=== PATIENT | male | born 1965 | race Caucasian/White ===

== ENCOUNTER 2017-04-25 07:24 | Emergency (ER) | payer OTHER ==
[~2017-04-25] VITALS: Ht 180.3 cm; Wt 77.1 kg
[~2017-04-25 07:24] MED LIST: ASPIR LOW81 MG PO; BACTROBAN OINT22 GM PO; BP PILL; CHOLESTEROL PILL; CLARITIN10 MG PO; EPI EZ PEN1 MG/ML IM; KEFLEX500 MG PO; MEDROL DOSEPAK4 MG PO; METFORMIN500 MG PO; NEURONTIN800 MG PO; POTASSIUM; ULTRAM50 MG PO
[2017-04-25] MEDS ORDERED: METFORMIN1000 MG PO (07:32)
[2017-04-25] MEDS ORDERED: ATENOLOL25 MG PO (07:32)
[2017-04-25] MEDS ORDERED: SIMVASTATIN40 MG PO (07:32)
[2017-04-25] MEDS ORDERED: LISINOPRIL2.5 MG PO (07:32)
[2017-04-25 07:33] VITALS: BP 149/99
== END 2017-04-25 09:29 | disposition home or self-care (01) ==
LOC: ED 07:24
DX: S93.401A Sprain of unspecified ligament of right ankle, initial encounter (principal); F17.200 Nicotine dependence, unspecified, uncomplicated; Z91.030 Bee allergy status; Z79.82 Long term (current) use of aspirin; Z79.899 Other long term (current) drug therapy; W10.9XXA Fall (on) (from) unspecified stairs and steps, initial encounter; Y93.89 Activity, other specified; Y92.89 Other specified places as the place of occurrence of the external cause; Y99.8 Other external cause status

== ENCOUNTER 2019-01-26 13:10 | Emergency (ER) | payer OTHER ==
[~2019-01-26] VITALS: Ht 180.3 cm; Wt 89.8 kg
[~2019-01-26 13:10] MED LIST changes: +ATENOLOL25 MG PO; +LISINOPRIL2.5 MG PO; +METFORMIN1000 MG PO; +SIMVASTATIN40 MG PO
[2019-01-26 13:11] VITALS: BP 153/92
[2019-01-26] MEDS ORDERED: CLARITIN10 MG PO (13:40)
== END 2019-01-26 13:43 | disposition home or self-care (01) ==
LOC: ED 13:10
DX: J30.9 Allergic rhinitis, unspecified (principal); F17.200 Nicotine dependence, unspecified, uncomplicated; Z91.030 Bee allergy status; Z79.899 Other long term (current) drug therapy; Z79.82 Long term (current) use of aspirin

== ENCOUNTER → 2020-11-08 | Outpatient (CLI) | payer OTHER | END | disposition home or self-care (01) | LOC: COVID19 14:00 | PROVIDERS: ATTEND Internal Medicine | DX: Z20.822 Contact with and (suspected) exposure to COVID-19 (principal) ==

== ENCOUNTER 2021-04-16 09:19 | Emergency (ER) | payer OTHER ==
[~2021-04-16] VITALS: Ht 180.3 cm; Wt 86.2 kg
[2021-04-16 09:23] VITALS: BP 159/110
[2021-04-16] MEDS ORDERED: PREDNISONE50 MG PO (09:48)
== END 2021-04-16 10:23 | disposition home or self-care (01) ==
LOC: ED 09:19
DX: L25.9 Unspecified contact dermatitis, unspecified cause (principal); Z91.030 Bee allergy status; Z79.899 Other long term (current) drug therapy; Z79.82 Long term (current) use of aspirin

== ENCOUNTER 2021-11-04 20:22 | Emergency (ER) | payer OTHER ==
[~2021-11-04] VITALS: Ht 180.3 cm; Wt 81.6 kg
[~2021-11-04 20:22] MED LIST changes: +PREDNISONE50 MG PO
[2021-11-04 20:31] VITALS: BP 108/56
== END 2021-11-04 21:27 | disposition home or self-care (01) ==
LOC: ED 20:22
DX: S01.112A Laceration without foreign body of left eyelid and periocular area, initial encounter (principal); Z91.030 Bee allergy status; Z79.899 Other long term (current) drug therapy; W22.8XXA Striking against or struck by other objects, initial encounter; Y93.89 Activity, other specified; Y92.89 Other specified places as the place of occurrence of the external cause; Y99.8 Other external cause status

== ENCOUNTER 2021-11-14 05:51 | Emergency (ER) | payer OTHER ==
[~2021-11-14] VITALS: Ht 185.4 cm; Wt 90.7 kg
[2021-11-14 06:21] VITALS: BP 132/74
== END 2021-11-14 06:32 | disposition home or self-care (01) ==
LOC: ED 05:51
DX: S01.112D Laceration without foreign body of left eyelid and periocular area, subsequent encounter (principal); Z91.030 Bee allergy status; Z79.899 Other long term (current) drug therapy; X58.XXXD Exposure to other specified factors, subsequent encounter

== ENCOUNTER 2021-12-18 08:58 | Observation (INO) | payer OTHER ==
[2021-12-18] VITALS (8 sets, daily range): BP systolic 118–220; BP diastolic 56–120
[~2021-12-18] VITALS: Ht 180.3 cm; Wt 83.9 kg
[2021-12-18 10:00] LABS: BASO # 0.1 10*3/uL (0.0-0.1); BASO % 1.1 % (0.0-1.0); EOS # 0.1 10*3/uL (0.0-0.4); HEMATOCRIT 42.7 % (42.0-52.0); LYMPH # 2.2 10*3/uL (1.3-4.4); LYMPH % 36.7 % (27.0-41.0); MEAN CELL VOLUME 95.5 fl (80.0-94.0); MEAN CORPUSCULAR HGB 34.7 pg (27.0-31.0); MEAN CORPUSCULAR HGB CONC 36.3 g/dl (33.0-37.0); MEAN PLATELET VOLUME 11.4 fl (9.6-12.3); MONO # 0.7 10*3/uL (0.1-1.0); MONO % 10.6 % (3.0-9.0); NEUT % 48.8 % (47.0-73.0); PLATELET COUNT AUTOMATED 174 10*3/uL (130-400); RED BLOOD COUNT 4.47 10*6/uL (4.50-5.90); RED CELL DISTRI WIDTH 12.4 % (0-14.5); WHITE BLOOD COUNT 6.1 10*3/uL (4.8-10.8)
[2021-12-18 10:03] LABS: BILIRUBIN Negative (Negative); BLOOD Negative (Negative); CLARITY Clear (Clear); COLOR Yellow (Yellow); GLUCOSE Negative (Negative); KETONE Negative (Negative); LEUKO ESTERASE Trace (Negative); NITRITE Negative (Negative); PH 5.5 (4.5-8.0); SPECIFIC GRAVITY 1.015 (1.001-1.030)
[2021-12-18 10:13] LABS: BACTERIA TRACE; EPITHELIAL CELLS 0-2
[2021-12-18 10:19] LABS: URINE AMPHETAMINES < 1000 (1000ng/ml); URINE BARBITURATES < 200 (200ng/ml); URINE BENZODIAZEPINES < 200 (200ng/ml); URINE CANNABINOIDS (THC) < 50 (50ng/ml); URINE COCAINE < 300 (300ng/ml); URINE METHADONE < 300 (300ng/ml); URINE OPIATES < 300 (300ng/ml)
[2021-12-18 10:24] LABS: URINE PHENCYCLIDINE < 25 (25ng/ml)
[2021-12-18 10:40] LABS: ACT PARTIAL THROMBO TIME 24.5 SECONDS (20.0-32.1)
[2021-12-18 10:43] LABS: CHOLESTEROL 188 mg/dL (<200)
[2021-12-18 10:45] LABS: CHLORIDE 100 mmol/L (98-107); POTASSIUM 4.3 mmol/L (3.5-5.1); SODIUM 134 mmol/L (136-145)
[2021-12-18 10:48] LABS: TRIGLYCERIDES 2312 mg/dl (<150)
[2021-12-18 10:54] LABS: ALKALINE PHOSPHATASE 77 U/L (45-117); BUN 15 mg/dl (7-24); SGOT/AST 134 IU/L (3-35); TOTAL PROTEIN 7.5 gm/dL (6.4-8.2)
[2021-12-18 11:15] LABS: SGPT/ALT 81 U/L (12-78)
[2021-12-18] MEDS ORDERED: LIPITOR40 MG PO (11:44)
[2021-12-18] MEDS ORDERED: LISINOPRIL20 MG PO (11:44)
[2021-12-18] MEDS ORDERED: METFORMIN HYD1000 MG PO (11:45)
[2021-12-19] VITALS: BP 122/83
[2021-12-19 05:48] LABS: BUN 9 mg/dl (7-24); CHLORIDE 105 mmol/L (98-107); POTASSIUM 3.5 mmol/L (3.5-5.1); SGOT/AST 55 IU/L (3-35); SGPT/ALT 64 U/L (12-78); SODIUM 137 mmol/L (136-145)
[2021-12-19 05:53] LABS: ALKALINE PHOSPHATASE 69 U/L (45-117); FREE T4 0.94 ng/dl (0.76-1.46); THYROID STIM HORMONE (HS) 0.995 uIU/ml (0.358-4.75); TOTAL PROTEIN 6.6 gm/dL (6.4-8.2)
[2021-12-19 06:40] LABS: BASO # 0.1 10*3/uL (0.0-0.1); BASO % 0.5 % (0.0-1.0); EOS # 0.2 10*3/uL (0.0-0.4); EOS % 2.2 % (1.0-4.0); HEMATOCRIT 38.9 % (42.0-52.0); LYMPH # 1.5 10*3/uL (1.3-4.4); LYMPH % 15.1 % (27.0-41.0); MEAN CELL VOLUME 94.9 fl (80.0-94.0); MEAN CORPUSCULAR HGB 34.1 pg (27.0-31.0); MEAN PLATELET VOLUME 12.2 fl (9.6-12.3); MONO # 0.8 10*3/uL (0.1-1.0); MONO % 7.8 % (3.0-9.0); NEUT # 7.4 10*3/uL (2.3-7.9); NEUT % 74.1 % (47.0-73.0); PLATELET COUNT AUTOMATED 132 10*3/uL (130-400)
[2021-12-19 07:13] LABS: VITAMIN D, 25-HYDROXY 10.7 ng/mL (30-100)
[2021-12-19 08:00] VITALS: BP 134/88; BP 134/95
[2021-12-19 12:00] VITALS: BP 114/67
[2021-12-19 16:00] VITALS: BP 123/86
[2021-12-19 20:00] VITALS: BP 118/71
[2021-12-20] VITALS: BP 138/89
[2021-12-20 06:07] LABS: HEP B CORE AB, IGM Negative (Negative); HEPATITIS B SURFACE AG Negative (Negative); HEPATITIS C VIRUS ANTIBODY <0.1 s/co (0.0-0.9)
[2021-12-20 08:00] VITALS: BP 125/96
[2021-12-20 12:00] VITALS: BP 109/61
[2021-12-20] MEDS ORDERED: METHOCARBAMOL750 M1 PO (13:34)
[2021-12-20] MEDS ORDERED: FENOFIBRATE160 MG PO (13:34)
[2021-12-20] MEDS ORDERED: DICYCLOMINE HYD20 MG PO (13:34)
[2021-12-20 16:00] VITALS: BP 125/82
[2021-12-20 20:00] VITALS: BP 120/89
[2021-12-21] VITALS: BP 148/95
[2021-12-21 08:00] VITALS: BP 124/90
== END 2021-12-21 10:14 | disposition home or self-care (01) ==
LOC: ED 08:58 → 4E 11:29 → EDHOLD 11:29 → 4E 13:37
PROVIDERS: Emergency Medicine; Registered Nurse; ADMIT Student in an Organized Health Care Education/Training Program; ATTEND Student in an Organized Health Care Education/Training Program
DX: I16.0 Hypertensive urgency (principal); F10.239 Alcohol dependence with withdrawal, unspecified; E78.1 Pure hyperglyceridemia; M79.601 Pain in right arm; M79.604 Pain in right leg; E11.9 Type 2 diabetes mellitus without complications; R74.01 Elevation of levels of liver transaminase levels; K76.0 Fatty (change of) liver, not elsewhere classified; R42 Dizziness and giddiness; I10 Essential (primary) hypertension; F17.210 Nicotine dependence, cigarettes, uncomplicated; Z79.899 Other long term (current) drug therapy

== ENCOUNTER 2023-08-15 08:18 | Emergency (ER) | payer OTHER ==
[~2023-08-15] VITALS: Wt 90.7 kg
[~2023-08-15 08:18] MED LIST changes: +DICYCLOMINE HYD20 MG PO; +FENOFIBRATE160 MG PO; +LIPITOR40 MG PO; +LISINOPRIL20 MG PO; +METFORMIN HYD1000 MG PO; +METHOCARBAMOL750 M1 PO
[2023-08-15 08:24] VITALS: BP 153/101
[2023-08-15 09:21] LABS: BASO % 0.4 % (0.0-1.0); EOS # 0.3 10*3/uL (0.0-0.4); LYMPH # 1.9 10*3/uL (1.3-4.4); LYMPH % 19.8 % (27.0-41.0); MEAN CORPUSCULAR HGB 35.3 pg (27.0-31.0); MONO # 0.8 10*3/uL (0.1-1.0); MONO % 7.9 % (3.0-9.0); NEUT # 6.7 10*3/uL (2.3-7.9); NEUT % 68.4 % (47.0-73.0); PLATELET COUNT AUTOMATED 154 10*3/uL (130-400); RED BLOOD COUNT 4.16 10*6/uL (4.50-5.90); RED CELL DISTRI WIDTH 13.4 % (0-14.5); WHITE BLOOD COUNT 9.8 10*3/uL (4.8-10.8)
[2023-08-15 09:40] LABS: ALKALINE PHOSPHATASE 69 U/L (46-116); BUN 8 mg/dl (9-23); CHLORIDE 104 mmol/L (98-107); LIPASE 73 U/L (12-53); POTASSIUM 3.7 mmol/L (3.4-5.1); SGPT/ALT 41 U/L (5-49); TOTAL PROTEIN 7.2 gm/dL (6.0-8.0)
== END 2023-08-15 11:02 | disposition home or self-care (01) ==
LOC: ED 08:18
PROVIDERS: Internal Medicine
DX: R42 Dizziness and giddiness (principal); D75.89 Other specified diseases of blood and blood-forming organs; I10 Essential (primary) hypertension; E11.9 Type 2 diabetes mellitus without complications; E78.00 Pure hypercholesterolemia, unspecified; Z91.030 Bee allergy status; F10.10 Alcohol abuse, uncomplicated; F17.210 Nicotine dependence, cigarettes, uncomplicated

== ENCOUNTER 2025-07-07 04:00 | Emergency (ER) | payer OTHER ==
[~2025-07-07] VITALS: Ht 180.3 cm; Wt 81.6 kg
[2025-07-07 04:23] VITALS: BP 126/89
[2025-07-07] MEDS ORDERED: METFORMIN HYDR750 MG PO (04:29)
[2025-07-07] MEDS ORDERED: RYBELSUS7 MG PO (04:29)
[2025-07-07] MEDS ORDERED: TRESIBA FL100 UNIT/1 SQ (04:30)
[2025-07-07] MEDS ORDERED: MAGNESIUM OXID400 MG PO (04:30)
[2025-07-07 05:53] LABS: BASO # 0.0 10*3/uL (0.0-0.1); BASO % 0.4 % (0.0-1.0); EOS # 0.2 10*3/uL (0.0-0.4); EOS % 1.6 % (1.0-4.0); MEAN CELL VOLUME 94.8 fl (80.0-94.0); MEAN CORPUSCULAR HGB 32.3 pg (27.0-31.0); MEAN PLATELET VOLUME 11.2 fl (9.6-12.3); MONO # 1.4 10*3/uL (0.1-1.0); MONO % 14.8 % (3.0-9.0); NEUT # 6.1 10*3/uL (2.3-7.9); NEUT % 63.5 % (47.0-73.0); NUCLEATED RED BLOOD CELL 0.0 % (0.0-0.0); NUCLEATED RED BLOOD CELL 0.0 10*3/uL (0.0-0.0); PLATELET COUNT AUTOMATED 186 10*3/uL (130-400); RED CELL DISTRI WIDTH 13.6 % (0-14.5)
[2025-07-07 06:14] LABS: BUN 19 mg/dl (9-23); SGPT/ALT 22 U/L (5-49)
[2025-07-07] MEDS ORDERED: SODIUM CHLORIDE 0.9% 100 ML BAG IV ONE (06:50)
[2025-07-07] MEDS ORDERED: IOHEXOL 350 MG/ML 100 ML VIAL IV ONE ×2 (06:50→07:11)
[2025-07-07] MEDS ORDERED: SODIUM CHLORIDE 0.9% 100 ML IV ONE (07:11)
[2025-07-07] MEDS ORDERED: MAGNESIUM SULFATE 50 ML IV ONE (08:00)
[2025-07-07] MEDS ORDERED: TRAMADOL HCL50 MG PO (08:39)
[2025-07-07] MEDS ORDERED: PREDNISONE20 M1 PO (08:39)
[2025-07-07] MEDS ORDERED: ALBUTEROL 8 GM INHALER INH ONE (08:40)
== END 2025-07-07 10:19 | disposition home or self-care (01) ==
LOC: ED 04:00
PROVIDERS: Emergency Medicine
DX: M25.561 Pain in right knee (principal); J44.1 Chronic obstructive pulmonary disease with (acute) exacerbation; R91.1 Solitary pulmonary nodule; M79.604 Pain in right leg; F17.200 Nicotine dependence, unspecified, uncomplicated; Z79.899 Other long term (current) drug therapy; Z91.030 Bee allergy status